=== PATIENT | female | born 1995 | race Hispanic/Latino ===

== ENCOUNTER 2016-07-06 05:01 | Emergency (ER) | payer OTHER ==
[2016-07-06] MEDS ORDERED: KETOROLAC 30 MG/ML VIAL (J1885) As Ordered ONE (05:42)
[2016-07-06] MEDS ORDERED: HYDROmorphone HCL 1 MG/ML SYRINGE (J1170) As Ordered ONE (05:42)
[2016-07-06 05:57] LABS: MICROSCOPIC INDICATED? MAN YES (NO)
[2016-07-06 06:02] LABS: BASO # 0.5 K/mm3 (0.0-0.2); BASO % 2.1 % (0.0-1.0); EOS # 0.2 K/mm3 (0.0-0.50); EOS % 0.9 % (0.0-3.0); LARGE UNSTAINED CELL # 0.2 K/mm3 (0.0-0.4); LARGE UNSTAINED CELL % 0.8 % (0.0-4.0); LYMPH # 3.7 K/mm3 (1.5-6.5); LYMPH % 16.5 % (24.0-44.0); MEAN CORPUSCULAR HEMOGLOBIN 28.8 pg (27.0-33.0); MEAN CORPUSCULAR HGB CONC 33.7 g/dl (32.0-36.5); MEAN CORPUSCULAR VOLUME 85.4 fl (80.0-96.0); MONO # 0.7 K/mm3 (0.0-0.8); MONO % 3.2 % (0.0-5.0); NEUTROPHILS # 16.6 K/mm3 (1.8-7.7); NEUTROPHILS % 76.5 % (36.0-66.0); PLATELET COUNT, AUTOMATED 352 k/mm3 (150-450); RED CELL DISTRIBUTION WIDTH 13.2 % (11.5-14.5); WHITE BLOOD COUNT 21.7 K/mm3 (4.0-10.0)
[2016-07-06 06:06] LABS: CONTROL LINE HCG INT CTR LINE PRESENT
[2016-07-06 06:09] LABS: ANION GAP 10 MEQ/L (8-16); BLOOD UREA NITROGEN 14 MG/DL (7-18); CARBON DIOXIDE LEVEL 26 MEQ/L (21-32); CHLORIDE LEVEL 106 MEQ/L (98-107); CREATININE FOR GFR 0.73 MG/DL (0.55-1.02); GLOMERULAR FILTRATION RATE > 60.0 (>60); GLUCOSE, FASTING 102 MG/DL (70-105); POTASSIUM SERUM 3.6 MEQ/L (3.5-5.1); SODIUM LEVEL 142 MEQ/L (136-145)
[2016-07-06 06:12] LABS: RBC, URINE TNTC /hpf (0-3); SQUAMOUS EPITHELIAL CELL URINE NONE SEEN /hpf (SMALL AMT)
[2016-07-06 06:13] LABS: BACTERIA, URINE NONE SEEN; HYALINE CAST, URINE NONE SEEN /lpf (0-1); MICROSCOPIC EXAM UNSPUN
--- NOTE | 2016-07-06 06:40 | REPUSA ---
CLINICAL HISTORY: Abdominal pain. TECHNIQUE: Multiple axial, sagittal and coronal CT images were obtained through the abdomen and pelvi s without administration of oral or IV contrast material. COMMENTS: The liver is of uniform attenuation without mass or defect. There is no intra or extrahepatic biliary ductal dilatation. The spleen is normal. The gallbladder is within normal limits. The pancreas is of normal contour and attenuation characteristics. There is no evidence of adrenal mass. The kidneys are normal in size, shape and configuration. No renal or ureteral calculi are identified. There is no hydroureter or hydronephrosis. There is no evidence for appendicitis. There is no bowel wall thickening. No evidence for small or la rge bowel obstruction. There is no evidence of abdominal ascites or lymphadenopathy. There is no evidence of intrinsic or extrinsic bladder mass. There is no pelvic ascites or lymphadeno michael. Moderate fecal stasis suggestive of constipation. Moderate fecal stasis in the distal small bowels. Images of the lung bases show no evidence of pleural or parenchymal mass. There are no pleural effusi ons. Mild diffuse thickening of the one of the small bowels. The bony structures are free of lytic or blastic lesions. IMPRESSION: Constipation. Thank you for your kind referral of this patient.
[2016-07-06] MEDS ORDERED: PHENAZOPYRIDINE 100 MG TAB As Ordered ONE (07:01)
[2016-07-06] MEDS ORDERED: BACTRIM 160MG/800MG DS TAB As Ordered ONE (07:02)
--- NOTE | 2016-07-06 07:09 | EDDOCDS ---
Physician Documentation [facility] Name: Andreina Angulo Age: 21 yrs Sex: Female : 1995 Arrival Date: 07/06/2016 Time: 05:01 Bed 7 Private MD: Disposition: 07/06/16 06:50 Discharged to Home/Self Care. Impression: Cystitis, unspecified with hematuria. - Condition is Stable. - Prescriptions for Pyridium 200 mg Oral Tablet - take 1 tablet by ORAL route every 8 hours for 3 days; 9 tablet. Bactrim DS 800- 160 mg Oral Tablet - take 1 tablet by ORAL route every 12 hours for 7 days; 14 tablet. - Medication Reconciliation, Local Pharmacy Hours form. - Follow up: Cuate Kumari [facility]; When: 1 - 2 days; Reason: Recheck today's complaints. - Problem is new. - Symptoms have improved. Historical: - Allergies: No known drug Allergies; - Home Meds: 1. none - PMHx: UTIin May; - PSHx: left knee; Tonsillectomy; Adenoidectomy; - Social history: Smoking status: Patient states was never smoker of tobacco. No barriers to communication noted, The patient speaks fluent Ukrainian. - Family history: Not pertinent. - : The pt / caregiver states he / she is not on anticoagulants. Home medication list is obtained from the patient. - Exposure Risk Screening:: None identified. NEWS REEL CAMERAMAN: 07/06 05:08 LMP 06/27/2016 [facility] [place] Vital Signs: 05:08 BP 120 / 77; Pulse 120; Resp 20; Temp 97.3; Pulse Ox 97% ; Weight 65.77 kg / 145 lbs; mlc Height 5 ft. 3 in. (160.02 cm); Pain 8/10; 06:18 BP 100 / 68 LA Supine (auto/); Pulse 88; Resp 18 S; Pulse Ox 99% on R/A; af2 05:08 Body Mass Index 25.69 (65.77 kg, 160.02 cm) [facility] [place] MDM: 05:32 IV Saline Lock ordered. cs11 05:32 NS 0.9% 2000 ml IV at bolus once ordered. cs11 05:32 ketorolac 30 mg IVP once ordered. cs11 05:33 Dilaudid - HYDROmorphone 0.5 mg IVP once ordered. cs11 05:33 CT ABD & PELVIS: No Contrast Ordered. EDMS 05:34 CBC with Diff Ordered. EDMS 05:34 MED Profile Ordered. EDMS 05:34 HCG,Serum Qualitative Ordered. EDMS 05:34 Urine Culture Ordered. EDMS 05:48 URINALYSIS MANUAL Ordered. EDMS 05:49 [facility] Payment Agreement was scanned into THE [employer] App and attached to record. pm4 05:50 Financial registration complete. pm4 06:08 CBC with Diff Reviewed. cs11 06:11 MICROSCOPIC, URINE Ordered. EDMS 06:35 URINALYSIS MANUAL Reviewed. cs11 06:35 MICROSCOPIC, URINE Reviewed. cs11 06:35 MED Profile Reviewed. cs11 06:35 HCG,Serum Qualitative Reviewed. cs11 06:48 Phenazopyridine 200 mg PO once ordered. cs11 06:49 Trimethoprim-Sulfamethoxazole 160 mg-800 mg (DS) 1 tabs PO once ordered. cs11 Administered Medications: 05:51 Drug: NS 0.9% 2000 ml [sodium chloride 0.9 % intravenous solution] Route: IV; Rate: mlc bolus; Site: right antecubital; 07:07 Follow up: IV Status: Infusion discontinued; IV Intake: 700ml kr3 05:51 Drug: ketorolac 30 mg [ketorolac 30 mg/mL (1 mL) injection solution (1 mL)] Route: IVP; [facility] [place] Site: right antecubital; 06:57 Follow up: Response: Pain is decreased af2 05:51 Drug: Dilaudid - HYDROmorphone 0.5 mg [hydromorphone 1 mg/mL injection syringe (0.5 mlc mL)] Route: IVP; Site: right antecubital; 06:57 Follow up: Response: Pain is decreased af2 07:07 Drug: Phenazopyridine 200 mg [phenazopyridine 100 mg tablet (2 tabs)] Route: PO; kr3 07:07 Drug: Trimethoprim-Sulfamethoxazole 1 tabs [sulfamethoxazole 800 mg-trimethoprim 160 mg kr3 tablet (1 tabs)] Route: PO; Signatures: Dispatcher MedHost EDMS Christy Rosen RN RN kr3 Fredo Lombardo, DO cs11 Cadence Garg RN RN [facility] [place] Gume Murcia, Reg Reg pm4 Sue Rodriguez RN af2 The chart was reviewed and I authenticate all verbal orders and agree with the evaluation and treatment provided.Corrections: (The following items were deleted from the chart) 05:48 05:34 URINALYSIS+LAB ordered. EDMS EDMS 06:28 06:26 MICROSCOPIC, URINE ordered. EDMS EDMS Attachments: 05:49 [facility] Payment Agreement pm4 MTDD
--- NOTE | 2016-07-06 07:10 | EDDOCDS ---
Nurse's Notes [facility] Name: Andreina Angulo Age: 21 yrs Sex: Female : 1995 Arrival Date: 07/06/2016 Time: 05:01 Bed 7 Private MD: Diagnosis: Cystitis, unspecified with hematuria Presentation: 07/06 05:05 Presenting complaint: Patient states: pt reports blood, possibly vaginal or urine mlc (unknown). pt also c/o lower back pain. sudden onset 2 hours ago. pt c/o nausea. Risk factors: The patient reports no loss of conciousness prior to arrival. This patient has not had a hysterectomy. This patient has not begun menopause. Adult Sepsis Screening: The patient does not have new or worsening altered mentation. Patient's respiratory rate is less than 22. Systolic blood pressure is greater than 100. Patient has a qSOFA score of 0- Negative Sepsis Screen. Suicide/Homicide risk assessment- the patient denies having any suicidal and/or homicidal ideations and does not present with any other emotional, behavioral or mental health complaints. Status: The patient is a dependent. Transition of care: patient was not received from another setting of care. 05:05 Acuity: ANDREINA Level 3 mlc 05:05 Method Of Arrival: Walkin/Carried/Asstd mlc Triage Assessment: 05:08 General: Appears uncomfortable, Behavior is cooperative, crying. Pain: Location: low mlc back area, suprapubic area, right lower quadrant and left lower quadrant Pain currently is 8 out of 10 on a pain scale. Pt Declines HIV testing. The patient is triaged at the bedside. See Assessment in Nurses Notes section of ED record. Neurological: Level of Consciousness is awake, alert, obeys commands, Oriented to person, place, time. Respiratory: Airway is patent Respiratory effort is even, unlabored, Respiratory pattern is regular. : Reports vaginal bleeding that is with clots moderate flow. Derm: Skin is pink, warm & dry. 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 none - PMHx: UTIin May; - PSHx: left knee; Tonsillectomy; Adenoidectomy; - Social history: Smoking status: Patient states was never smoker of tobacco. No barriers to communication noted, The patient speaks fluent Wolof. - Family history: Not pertinent. - : The pt / caregiver states he / she is not on anticoagulants. Home medication list is obtained from the patient. - Exposure Risk Screening:: None identified. Screenin:11 Screening information is obtained from the patient. Fall risk: No risks identified. [facility] [place] Assistance ADL's: requires no assistance with activities of daily living. Abuse/DV Screen: The patient / caregiver reports he/she is: not in a situation that causes fear, pain or injury. Nutritional screening: No deficits noted. Advance Directives: Currently, there is no health care proxy. There is no Power of Mail Examiner. home support is adequate. Assessment: 05:17 : Urine is blood tinged. [facility] [place] 05:51 General: pt medicated per order. [facility] [place] 05:55 General: Appears in no apparent distress, comfortable, Behavior is appropriate for age, af2 cooperative. Neurological: Level of Consciousness is awake, alert, obeys commands. Respiratory: Airway is patent Respiratory effort is even, unlabored. : Urine is blood tinged, Reports urinary frequency. 06:33 General: Appears in no apparent distress, comfortable, Behavior is appropriate for age, af2 cooperative. General: pt returned from CT, tolerated procedure well.. Neurological: Level of Consciousness is awake, alert, obeys commands. Respiratory: Airway is patent Respiratory effort is even, unlabored. Derm: Skin is normal. 07:08 Reassessment: Patient appears in no apparent distress at this time. Patient denies pain kr3 at this time. Patient states feeling better. Respiratory: Respiratory effort is even, unlabored. Derm: Skin is normal. Vital Signs: 05:08 BP 120 / 77; Pulse 120; Resp 20; Temp 97.3; Pulse Ox 97% ; Weight 65.77 kg; Height 5 [facility] [place] ft. 3 in. (160.02 cm); Pain 8/10; 06:18 BP 100 / 68 LA Supine (auto/); Pulse 88; Resp 18 S; Pulse Ox 99% on R/A; af2 05:08 Body Mass Index 25.69 (65.77 kg, 160.02 cm) [facility] [place] Vitals: 05:08 Log In Time: July 06, 2016 at 05:03. [facility] [place] ED Course: 05:03 Patient visited by Cruz, Yuliana, Reg. hs2 05:03 Patient moved to Waiting hs2 05:07 Triage Initiated mlc 05:11 Patient visited by Cadence Garg RN. mlc 05:11 Patient moved to 7 mlc 05:14 Fredo Lombardo DO is Attending Physician. cs11 05:14 Patient visited by Fredo Lombardo DO. cs11 05:41 Urine Culture Sent. mlc 05:41 HCG,Serum Qualitative Sent. mlc 05:41 MED Profile Sent. mlc 05:41 CBC with Diff Sent. mlc 05:48 Patient name changed from Andreina\S\L\S\Angulo\S\ to Andreina\S\Beverly\S\Angulo. EDMS 05:49 [facility] [place] Payment Agreement was scanned into [employer] and attached to record. pm4 05:51 Patient visited by Cadence Garg RN. mlc 05:51 URINALYSIS MANUAL Sent. mlc 05:56 Patient visited by Sue Rodriguez RN. af2 06:19 Patient visited by Sue Rodriguez RN. af2 06:35 Patient visited by Sue Rodriguez RN. af2 06:50 Cuate Kumari [facility] is Referral Physician. cs11 06:59 Christy Rosen,CHAYITO is Primary Nurse. kr3 07:07 Discontinued lock intact, bleeding controlled, pressure dressing applied, No kr3 redness/swelling at site. No procedures done that require assistance. 07:08 The patient / caregiver is instructed regarding the plan of care and ED course. kr3 Accompanied by Family Member, Patient has correct armband on for positive identification. Administered Medications: 05:51 Drug: NS 0.9% 2000 ml [sodium chloride 0.9 % intravenous solution] Route: IV; Rate: mlc bolus; Site: right antecubital; 07:07 Follow up: IV Status: Infusion discontinued; IV Intake: 700ml kr3 05:51 Drug: ketorolac 30 mg [ketorolac 30 mg/mL (1 mL) injection solution (1 mL)] Route: IVP; mlc Site: right antecubital; 06:57 Follow up: Response: Pain is decreased af2 05:51 Drug: Dilaudid - HYDROmorphone 0.5 mg [hydromorphone 1 mg/mL injection syringe (0.5 mlc mL)] Route: IVP; Site: right antecubital; 06:57 Follow up: Response: Pain is decreased af2 07:07 Drug: Phenazopyridine 200 mg [phenazopyridine 100 mg tablet (2 tabs)] Route: PO; kr3 07:07 Drug: Trimethoprim-Sulfamethoxazole 1 tabs [sulfamethoxazole 800 mg-trimethoprim 160 mg kr3 tablet (1 tabs)] Route: PO; Intake: 07:07 IV: 700.00ml; Total: 700.00ml. kr3 Order Results: Lab Order: CBC with Diff; SPEC'M 07/06/16 05:33 Test: WHITE BLOOD COUNT; Value: 21.7; Range: 4.0-10.0; Abnormal: Above high normal; Units: K/mm3; Status: F Test: RED BLOOD COUNT; Value: 5.05; Range: 4.00-5.40; Units: M/mm3; Status: F Test: HEMOGLOBIN; Value: 14.6; Range: 12.0-16.0; Units: g/dl; Status: F Test: HEMATOCRIT; Value: 43.2; Range: 36.0-47.0; Units: %; Status: F Test: MEAN CORPUSCULAR VOLUME; Value: 85.4; Range: 80.0-96.0; Units: fl; Status: F Test: MEAN CORPUSCULAR HEMOGLOBIN; Value: 28.8; Range: 27.0-33.0; Units: pg; Status: F Test: MEAN CORPUSCULAR HGB CONC; Value: 33.7; Range: 32.0-36.5; Units: g/dl; Status: F Test: RED CELL DISTRIBUTION WIDTH; Value: 13.2; Range: 11.5-14.5; Units: %; Status: F Test: PLATELET COUNT, AUTOMATED; Value: 352; Range: 150-450; Units: k/mm3; Status: F Test: NEUTROPHILS %; Value: 76.5; Range: 36.0-66.0; Abnormal: Above high normal; Units: %; Status: F Test: LYMPH %; Value: 16.5; Range: 24.0-44.0; Abnormal: Below low normal; Units: %; Status: F Test: MONO %; Value: 3.2; Range: 0.0-5.0; Units: %; Status: F Test: EOS %; Value: 0.9; Range: 0.0-3.0; Units: %; Status: F Test: BASO %; Value: 2.1; Range: 0.0-1.0; Abnormal: Above high normal; Units: %; Status: F Test: LARGE UNSTAINED CELL %; Value: 0.8; Range: 0.0-4.0; Units: %; Status: F Test: NEUTROPHILS #; Value: 16.6; Range: 1.8-7.7; Abnormal: Above high normal; Units: K/mm3; Status: F Test: LYMPH #; Value: 3.7; Range: 1.5-6.5; Units: K/mm3; Status: F Test: MONO #; Value: 0.7; Range: 0.0-0.8; Units: K/mm3; Status: F Test: EOS #; Value: 0.2; Range: 0.0-0.50; Units: K/mm3; Status: F Test: BASO #; Value: 0.5; Range: 0.0-0.2; Abnormal: Above high normal; Units: K/mm3; Status: F Test: LARGE UNSTAINED CELL #; Value: 0.2; Range: 0.0-0.4; Units: K/mm3; Status: F Lab Order: MED Profile; SPEC'M 07/06/16 05:33 Test: GLUCOSE, FASTING; Value: 102; Range: 70-105; Units: MG/DL; Status: F Test: BLOOD UREA NITROGEN; Value: 14; Range: 7-18; Units: MG/DL; Status: F Test: CREATININE FOR GFR; Value: 0.73; Range: 0.55-1.02; Units: MG/DL; Status: F Test: SODIUM LEVEL; Range: 136-145; Units: MEQ/L; Status: I Test: POTASSIUM SERUM; Range: 3.5-5.1; Units: MEQ/L; Status: I Test: CHLORIDE LEVEL; Range: 98-107; Units: MEQ/L; Status: I Test: CARBON DIOXIDE LEVEL; Range: 21-32; Units: MEQ/L; Status: I Test: ANION GAP; Range: 8-16; Units: MEQ/L; Status: I Test: CALCIUM LEVEL; Range: 8.5-10.1; Units: MG/DL; Status: I Test: GLOMERULAR FILTRATION RATE; Value: > 60.0; Range: >60; Status: F Test: SODIUM LEVEL; Value: 142; Range: 136-145; Units: MEQ/L; Status: F Test: POTASSIUM SERUM; Value: 3.6; Range: 3.5-5.1; Units: MEQ/L; Status: F Test: CHLORIDE LEVEL; Value: 106; Range: 98-107; Units: MEQ/L; Status: F Test: CARBON DIOXIDE LEVEL; Value: 26; Range: 21-32; Units: MEQ/L; Status: F Test: ANION GAP; Value: 10; Range: 8-16; Units: MEQ/L; Status: F Test: CALCIUM LEVEL; Value: 9.0; Range: 8.5-10.1; Units: MG/DL; Status: F Test Note: ; Units are mL/min/1.73 m2 Chronic Kidney Disease Staging per NKF: Stage I & II GFR >=60 Normal to Mildly Decreased Stage III GFR 30-59 Moderately Decreased Stage IV GFR 15-29 Severely Decreased Stage V GFR <15 Very Little GFR Left ESRD GFR <15 on SUPERVISOR POWDERED SUGAR Lab Order: HCG,Serum Qualitative; SPEC'M 07/06/16 05:33 Test: HCG, SERUM QUALITATIVE; Value: NEGATIVE; Range: NEGATIVE; Status: F Lab Order: URINALYSIS MANUAL; SPEC'M 07/06/16 05:33 Test: APPEARANCE, URINE MANUAL; Value: TURBID; Range: CLEAR; Abnormal: Above high normal; Status: F Test: COLOR, URINE MANUAL; Value: RED; Range: YELLOW; Abnormal: Above high normal; Status: F Test: PH,URINE MAN; Value: 6.0; Range: 5.0 - 9.0; Units: UNITS; Status: F Test: SPECIFIC GRAVITY,URINE MANUAL; Value: 1.020; Range: 1.002-1.035; Status: F Test: PROTEIN, URINE MANUAL; Value: 3+; Range: NEGATIVE; Abnormal: Above high normal; Units: mg/dL; Status: F Test: GLUCOSE, URINE (UA) MANUAL; Value: NEGATIVE; Range: NEGATIVE; Units: mg/dL; Status: F Test: KETONE, URINE MANUAL; Value: NEGATIVE; Range: NEGATIVE; Units: mg/dL; Status: F Test: UROBILINOGEN, URINE MANUAL; Value: NORMAL; Range: NORMAL; Units: mg/dl; Status: F Test: BILIRUBIN, URINE MANUAL; Value: NEGATIVE; Range: NEGATIVE; Status: F Test: NITRITE, URINE MANUAL; Value: NEGATIVE; Range: NEGATIVE; Status: F Test: LEUKOCYTE ESTERASE, URINE MAN; Value: POSITIVE; Range: NEGATIVE; Abnormal: Above high normal; Status: F Test: BLOOD URINE MANUAL; Value: POSITIVE; Range: NEGATIVE; Abnormal: Above high normal; Status: F Lab Order: MICROSCOPIC, URINE; SPEC'M 07/06/16 05:33 Test: WBC, URINE; Value: 1-3; Range: 0-3; Units: /hpf; Status: F Test: RBC, URINE; Value: TNTC; Range: 0-3; Abnormal: Above high normal; Units: /hpf; Status: F Test: SQUAMOUS EPITHELIAL CELL URINE; Value: NONE SEEN; Range: SMALL AMT; Units: /hpf; Status: F Test: BACTERIA, URINE; Value: NONE SEEN; Range: NONE; Status: F Test: HYALINE CAST, URINE; Value: NONE SEEN; Range: 0-1; Units: /lpf; Status: F Test: MICROSCOPIC EXAM; Value: UNSPUN; Status: F Outcome: 06:50 Discharge ordered by Provider. 11 07:08 Discharge Assessment: patient administered narcotics - yes. Pt provided with safe kr3 discharge. The following High Risk Discharge criteria are identified: None. Discharged to home ambulatory, with family. Condition: stable. Discharge instructions given to patient, Instructed on discharge instructions, follow up and referral plans. medication usage, Demonstrated understanding of instructions, medications, Pt was receptive of discharge instructions/ teaching. Prescriptions given X 2. CT Study completed. Property sent home with patient. 07:09 Patient left the ED. kr3 Signatures: Dispatcher MedHost EDMS Christy RosenRN RN clara3 Fredo Lombardo DO DO cs11 Cadence Garg RN RN mlc Fulton, Amber, RN RN af2 Yuliana Cruz, Reg Reg hs2 Gume Murcia, Reg Reg pm4 Corrections: (The following items were deleted from the chart) 05:48 05:41 URINALYSIS+LAB sent. [facility] [place] COREYHI MTDD
--- NOTE | 2016-07-08 08:10 | EDDOCDS ---
Physician Documentation [facility] Name: Andreina Angulo Age: 21 yrs Sex: Female : 1995 Arrival Date: 07/06/2016 Time: 05:01 Bed 7 Private MD: Disposition: 07/06/16 06:50 Discharged to Home/Self Care. Impression: Cystitis, unspecified with hematuria. - Condition is Stable. - Prescriptions for Pyridium 200 mg Oral Tablet - take 1 tablet by ORAL route every 8 hours for 3 days; 9 tablet. Bactrim DS 800- 160 mg Oral Tablet - take 1 tablet by ORAL route every 12 hours for 7 days; 14 tablet. - Medication Reconciliation, Local Pharmacy Hours form. - Follow up: Cuate Kumari [facility]; When: 1 - 2 days; Reason: Recheck today's complaints. - Problem is new. - Symptoms have improved. Historical: - Allergies: No known drug Allergies; - Home Meds: 1. none - PMHx: UTIin May; - PSHx: left knee; Tonsillectomy; Adenoidectomy; - Social history: Smoking status: Patient states was never smoker of tobacco. No barriers to communication noted, The patient speaks fluent Maltese. - Family history: Not pertinent. - : The pt / caregiver states he / she is not on anticoagulants. Home medication list is obtained from the patient. - Exposure Risk Screening:: None identified. SAW FEEDER: 07/06 05:08 [place]/2016 [facility] [place]ital Signs: 05:08 BP 120 / 77; Pulse 120; Resp 20; Temp 97.3; Pulse Ox 97% ; Weight 65.77 kg / 145 lbs; mlc Height 5 ft. 3 in. (160.02 cm); Pain 8/10; 06:18 BP 100 / 68 LA Supine (auto/); Pulse 88; Resp 18 S; Pulse Ox 99% on R/A; af2 05:08 Body Mass Index 25.69 (65.77 kg, 160.02 cm) [facility] [place] MDM: 05:32 IV Saline Lock ordered. cs11 05:32 NS 0.9% 2000 ml IV at bolus once ordered. cs11 05:32 ketorolac 30 mg IVP once ordered. cs11 05:33 Dilaudid - HYDROmorphone 0.5 mg IVP once ordered. cs11 05:33 CT ABD & PELVIS: No Contrast Ordered. EDMS 05:34 CBC with Diff Ordered. EDMS 05:34 MED Profile Ordered. EDMS 05:34 HCG,Serum Qualitative Ordered. EDMS 05:34 Urine Culture Ordered. EDMS 05:48 URINALYSIS MANUAL Ordered. EDMS 05:49 [facility] Payment Agreement was scanned into youcalc and attached to record. pm4 05:50 Financial registration complete. pm4 06:08 CBC with Diff Reviewed. cs11 06:11 MICROSCOPIC, URINE Ordered. EDMS 06:35 URINALYSIS MANUAL Reviewed. cs11 06:35 MICROSCOPIC, URINE Reviewed. cs11 06:35 MED Profile Reviewed. cs11 06:35 HCG,Serum Qualitative Reviewed. cs11 06:48 Phenazopyridine 200 mg PO once ordered. cs11 06:49 Trimethoprim-Sulfamethoxazole 160 mg-800 mg (DS) 1 tabs PO once ordered. cs11 13:12 Radiology Report was scanned into youcalc and attached to record. gb 13:38 T-Sheet-- Draft Copy was scanned into youcalc and attached to record. gb Administered Medications: 05:51 Drug: NS 0.9% 2000 ml [sodium chloride 0.9 % intravenous solution] Route: IV; Rate: mlc bolus; Site: right antecubital; 07:07 Follow up: IV Status: Infusion discontinued; IV Intake: 700ml kr3 05:51 Drug: ketorolac 30 mg [ketorolac 30 mg/mL (1 mL) injection solution (1 mL)] Route: IVP; mlc Site: right antecubital; 06:57 Follow up: Response: Pain is decreased af2 05:51 Drug: Dilaudid - HYDROmorphone 0.5 mg [hydromorphone 1 mg/mL injection syringe (0.5 mlc mL)] Route: IVP; Site: right antecubital; 06:57 Follow up: Response: Pain is decreased af2 07:07 Drug: Phenazopyridine 200 mg [phenazopyridine 100 mg tablet (2 tabs)] Route: PO; kr3 07:07 Drug: Trimethoprim-Sulfamethoxazole 1 tabs [sulfamethoxazole 800 mg-trimethoprim 160 mg kr3 tablet (1 tabs)] Route: PO; Signatures: Dispatcher MedHost EDMS Zunilda Billingsley, Reg Reg gb Silas,Christy,RN RN kr3 Fredo Lombardo, DO DO cs11 Cadence GargRN RN [facility] [place] Gume Murcia, Reg Reg pm4 Sue Rodriguez RN af2 The chart was reviewed and I authenticate all verbal orders and agree with the evaluation and treatment provided.Corrections: (The following items were deleted from the chart) 05:48 05:34 URINALYSIS+LAB ordered. EDMS EDMS 06:28 06:26 MICROSCOPIC, URINE ordered. EDMS EDMS Attachments: 05:49 [facility] [place] Payment Agreement pm4 13:38 T-Sheet-- Draft Copy gb Chart Complete MTDD
--- NOTE | 2016-07-08 08:10 | EDDOCDS ---
Physician Documentation [facility] Name: Andreina Angulo Age: 21 yrs Sex: Female : 1995 Arrival Date: 07/06/2016 Time: 05:01 Bed 7 Private MD: Disposition: 07/06/16 06:50 Discharged to Home/Self Care. Impression: Cystitis, unspecified with hematuria. - Condition is Stable. - Prescriptions for Pyridium 200 mg Oral Tablet - take 1 tablet by ORAL route every 8 hours for 3 days; 9 tablet. Bactrim DS 800- 160 mg Oral Tablet - take 1 tablet by ORAL route every 12 hours for 7 days; 14 tablet. - Medication Reconciliation, Local Pharmacy Hours form. - Follow up: Cuate Kumair [facility]; When: 1 - 2 days; Reason: Recheck today's complaints. - Problem is new. - Symptoms have improved. Historical: - Allergies: No known drug Allergies; - Home Meds: 1. none - PMHx: UTIin May; - PSHx: left knee; Tonsillectomy; Adenoidectomy; - Social history: Smoking status: Patient states was never smoker of tobacco. No barriers to communication noted, The patient speaks fluent Croatian. - Family history: Not pertinent. - : The pt / caregiver states he / she is not on anticoagulants. Home medication list is obtained from the patient. - Exposure Risk Screening:: None identified. 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 3 in. (160.02 cm); Pain 8/10; 06:18 BP 100 / 68 LA Supine (auto/); Pulse 88; Resp 18 S; Pulse Ox 99% on R/A; af2 05:08 Body Mass Index 25.69 (65.77 kg, 160.02 cm) [facility] [place] MDM: 05:32 IV Saline Lock ordered. cs11 05:32 NS 0.9% 2000 ml IV at bolus once ordered. cs11 05:32 ketorolac 30 mg IVP once ordered. cs11 05:33 Dilaudid - HYDROmorphone 0.5 mg IVP once ordered. cs11 05:33 CT ABD & PELVIS: No Contrast Ordered. EDMS 05:34 CBC with Diff Ordered. EDMS 05:34 MED Profile Ordered. EDMS 05:34 HCG,Serum Qualitative Ordered. EDMS 05:34 Urine Culture Ordered. EDMS 05:48 URINALYSIS MANUAL Ordered. EDMS 05:49 [facility] Payment Agreement was scanned into [employer] and attached to record. pm4 05:50 Financial registration complete. pm4 06:08 CBC with Diff Reviewed. cs11 06:11 MICROSCOPIC, URINE Ordered. EDMS 06:35 URINALYSIS MANUAL Reviewed. cs11 06:35 MICROSCOPIC, URINE Reviewed. cs11 06:35 MED Profile Reviewed. cs11 06:35 HCG,Serum Qualitative Reviewed. cs11 06:48 Phenazopyridine 200 mg PO once ordered. cs11 06:49 Trimethoprim-Sulfamethoxazole 160 mg-800 mg (DS) 1 tabs PO once ordered. cs11 13:12 Radiology Report was scanned into [employer] and attached to record. gb 13:38 T-Sheet-- Draft Copy was scanned into [employer] and attached to record. gb Administered Medications: 05:51 Drug: NS 0.9% 2000 ml [sodium chloride 0.9 % intravenous solution] Route: IV; Rate: mlc bolus; Site: right antecubital; 07:07 Follow up: IV Status: Infusion discontinued; IV Intake: 700ml kr3 05:51 Drug: ketorolac 30 mg [ketorolac 30 mg/mL (1 mL) injection solution (1 mL)] Route: IVP; mlc Site: right antecubital; 06:57 Follow up: Response: Pain is decreased af2 05:51 Drug: Dilaudid - HYDROmorphone 0.5 mg [hydromorphone 1 mg/mL injection syringe (0.5 mlc mL)] Route: IVP; Site: right antecubital; 06:57 Follow up: Response: Pain is decreased af2 07:07 Drug: Phenazopyridine 200 mg [phenazopyridine 100 mg tablet (2 tabs)] Route: PO; kr3 07:07 Drug: Trimethoprim-Sulfamethoxazole 1 tabs [sulfamethoxazole 800 mg-trimethoprim 160 mg kr3 tablet (1 tabs)] Route: PO; Signatures: Dispatcher [employer] EDMS Zunilda Billingsley, Reg Reg gb Silas,Christy,RN RN kr3 Fredo Lombardo, DO DO cs11 Cadence GargRN RN [facility] [place] Gume Murcia, Reg Reg pm4 Sue Rodriguez RN af2 The chart was reviewed and I authenticate all verbal orders and agree with the evaluation and treatment provided.Corrections: (The following items were deleted from the chart) 05:48 05:34 URINALYSIS+LAB ordered. EDMS EDMS 06:28 06:26 MICROSCOPIC, URINE ordered. EDMS EDMS Attachments: 05:49 [facility] [place] Payment Agreement pm4 13:38 T-Sheet-- Draft Copy gb Chart Complete MTDD
--- NOTE | 2016-07-08 08:10 | EDDOCDS ---
Nurse's Notes [facility] Name: Andreina Angulo Age: 21 yrs Sex: Female : 1995 Arrival Date: 07/06/2016 Time: 05:01 Bed 7 Private MD: Diagnosis: Cystitis, unspecified with hematuria Presentation: 07/06 05:05 Presenting complaint: Patient states: pt reports blood, possibly vaginal or urine mlc (unknown). pt also c/o lower back pain. sudden onset 2 hours ago. pt c/o nausea. Risk factors: The patient reports no loss of conciousness prior to arrival. This patient has not had a hysterectomy. This patient has not begun menopause. Adult Sepsis Screening: The patient does not have new or worsening altered mentation. Patient's respiratory rate is less than 22. Systolic blood pressure is greater than 100. Patient has a qSOFA score of 0- Negative Sepsis Screen. Suicide/Homicide risk assessment- the patient denies having any suicidal and/or homicidal ideations and does not present with any other emotional, behavioral or mental health complaints. Status: The patient is a dependent. Transition of care: patient was not received from another setting of care. 05:05 Acuity: ANDREINA Level 3 mlc 05:05 Method Of Arrival: Walkin/Carried/Asstd mlc Triage Assessment: 05:08 General: Appears uncomfortable, Behavior is cooperative, crying. Pain: Location: low mlc back area, suprapubic area, right lower quadrant and left lower quadrant Pain currently is 8 out of 10 on a pain scale. Pt Declines HIV testing. The patient is triaged at the bedside. See Assessment in Nurses Notes section of ED record. Neurological: Level of Consciousness is awake, alert, obeys commands, Oriented to person, place, time. Respiratory: Airway is patent Respiratory effort is even, unlabored, Respiratory pattern is regular. : Reports vaginal bleeding that is with clots moderate flow. Derm: Skin is pink, warm & dry. 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 none - PMHx: UTIin May; - PSHx: left knee; Tonsillectomy; Adenoidectomy; - Social history: Smoking status: Patient states was never smoker of tobacco. No barriers to communication noted, The patient speaks fluent Polish. - Family history: Not pertinent. - : The pt / caregiver states he / she is not on anticoagulants. Home medication list is obtained from the patient. - Exposure Risk Screening:: None identified. Screenin:11 Screening information is obtained from the patient. Fall risk: No risks identified. [facility] Assistance ADL's: requires no assistance with activities of daily living. Abuse/DV Screen: The patient / caregiver reports he/she is: not in a situation that causes fear, pain or injury. Nutritional screening: No deficits noted. Advance Directives: Currently, there is no health care proxy. There is no Power of Manager Community. home support is adequate. Assessment: 05:17 : Urine is blood tinged. [facility] 05:51 General: pt medicated per order. [facility] 05:55 General: Appears in no apparent distress, comfortable, Behavior is appropriate for age, af2 cooperative. Neurological: Level of Consciousness is awake, alert, obeys commands. Respiratory: Airway is patent Respiratory effort is even, unlabored. : Urine is blood tinged, Reports urinary frequency. 06:33 General: Appears in no apparent distress, comfortable, Behavior is appropriate for age, af2 cooperative. General: pt returned from CT, tolerated procedure well.. Neurological: Level of Consciousness is awake, alert, obeys commands. Respiratory: Airway is patent Respiratory effort is even, unlabored. Derm: Skin is normal. 07:08 Reassessment: Patient appears in no apparent distress at this time. Patient denies pain kr3 at this time. Patient states feeling better. Respiratory: Respiratory effort is even, unlabored. Derm: Skin is normal. Vital Signs: 05:08 BP 120 / 77; Pulse 120; Resp 20; Temp 97.3; Pulse Ox 97% ; Weight 65.77 kg; Height 5 [facility] ft. 3 in. (160.02 cm); Pain 8/10; 06:18 BP 100 / 68 LA Supine (auto/); Pulse 88; Resp 18 S; Pulse Ox 99% on R/A; af2 05:08 Body Mass Index 25.69 (65.77 kg, 160.02 cm) [facility] Vitals: 05:08 Log In Time: July 06, 2016 at 05:03. [facility] ED Course: 05:03 Patient visited by Cruz, Yuliana, Reg. hs2 05:03 Patient moved to Waiting hs2 05:07 Triage Initiated mlc 05:11 Patient visited by Cadence Garg RN. mlc 05:11 Patient moved to 7 mlc 05:14 Fredo Lombardo DO is Attending Physician. cs11 05:14 Patient visited by Fredo Lombardo DO. cs11 05:41 Urine Culture Sent. mlc 05:41 HCG,Serum Qualitative Sent. mlc 05:41 MED Profile Sent. mlc 05:41 CBC with Diff Sent. mlc 05:48 Patient name changed from Andreina\S\L\S\Angulo\S\ to Andreina\S\Beverly\S\Angulo. EDMS 05:49 [facility] [place] Payment Agreement was scanned into [employer] and attached to record. pm4 05:51 Patient visited by Cadence Garg RN. mlc 05:51 URINALYSIS MANUAL Sent. mlc 05:56 Patient visited by Sue Rodriguez RN. af2 06:19 Patient visited by uSe Rodriguez RN. af2 06:35 Patient visited by Sue Rodriguez RN. af2 06:50 Cuate Kumari [facility] is Referral Physician. cs11 06:59 Christy Rosen,CHAYITO is Primary Nurse. kr3 07:07 Discontinued lock intact, bleeding controlled, pressure dressing applied, No kr3 redness/swelling at site. No procedures done that require assistance. 07:08 The patient / caregiver is instructed regarding the plan of care and ED course. kr3 Accompanied by Family Member, Patient has correct armband on for positive identification. 07:15 CT ABD & PELVIS: No Contrast Returned. EDMS 13:12 Radiology Report was scanned into [employer] and attached to record. gb 13:38 T-Sheet-- Draft Copy was scanned into [employer] and attached to record. gb Administered Medications: 05:51 Drug: NS 0.9% 2000 ml [sodium chloride 0.9 % intravenous solution] Route: IV; Rate: mlc bolus; Site: right antecubital; 07:07 Follow up: IV Status: Infusion discontinued; IV Intake: 700ml kr3 05:51 Drug: ketorolac 30 mg [ketorolac 30 mg/mL (1 mL) injection solution (1 mL)] Route: IVP; mlc Site: right antecubital; 06:57 Follow up: Response: Pain is decreased af2 05:51 Drug: Dilaudid - HYDROmorphone 0.5 mg [hydromorphone 1 mg/mL injection syringe (0.5 mlc mL)] Route: IVP; Site: right antecubital; 06:57 Follow up: Response: Pain is decreased af2 07:07 Drug: Phenazopyridine 200 mg [phenazopyridine 100 mg tablet (2 tabs)] Route: PO; kr3 07:07 Drug: Trimethoprim-Sulfamethoxazole 1 tabs [sulfamethoxazole 800 mg-trimethoprim 160 mg kr3 tablet (1 tabs)] Route: PO; Intake: 07:07 IV: 700.00ml; Total: 700.00ml. kr3 Order Results: Lab Order: CBC with Diff; SPEC'M 07/06/16 05:33 Test: WHITE BLOOD COUNT; Value: 21.7; Range: 4.0-10.0; Abnormal: Above high normal; Units: K/mm3; Status: F Test: RED BLOOD COUNT; Value: 5.05; Range: 4.00-5.40; Units: M/mm3; Status: F Test: HEMOGLOBIN; Value: 14.6; Range: 12.0-16.0; Units: g/dl; Status: F Test: HEMATOCRIT; Value: 43.2; Range: 36.0-47.0; Units: %; Status: F Test: MEAN CORPUSCULAR VOLUME; Value: 85.4; Range: 80.0-96.0; Units: fl; Status: F Test: MEAN CORPUSCULAR HEMOGLOBIN; Value: 28.8; Range: 27.0-33.0; Units: pg; Status: F Test: MEAN CORPUSCULAR HGB CONC; Value: 33.7; Range: 32.0-36.5; Units: g/dl; Status: F Test: RED CELL DISTRIBUTION WIDTH; Value: 13.2; Range: 11.5-14.5; Units: %; Status: F Test: PLATELET COUNT, AUTOMATED; Value: 352; Range: 150-450; Units: k/mm3; Status: F Test: NEUTROPHILS %; Value: 76.5; Range: 36.0-66.0; Abnormal: Above high normal; Units: %; Status: F Test: LYMPH %; Value: 16.5; Range: 24.0-44.0; Abnormal: Below low normal; Units: %; Status: F Test: MONO %; Value: 3.2; Range: 0.0-5.0; Units: %; Status: F Test: EOS %; Value: 0.9; Range: 0.0-3.0; Units: %; Status: F Test: BASO %; Value: 2.1; Range: 0.0-1.0; Abnormal: Above high normal; Units: %; Status: F Test: LARGE UNSTAINED CELL %; Value: 0.8; Range: 0.0-4.0; Units: %; Status: F Test: NEUTROPHILS #; Value: 16.6; Range: 1.8-7.7; Abnormal: Above high normal; Units: K/mm3; Status: F Test: LYMPH #; Value: 3.7; Range: 1.5-6.5; Units: K/mm3; Status: F Test: MONO #; Value: 0.7; Range: 0.0-0.8; Units: K/mm3; Status: F Test: EOS #; Value: 0.2; Range: 0.0-0.50; Units: K/mm3; Status: F Test: BASO #; Value: 0.5; Range: 0.0-0.2; Abnormal: Above high normal; Units: K/mm3; Status: F Test: LARGE UNSTAINED CELL #; Value: 0.2; Range: 0.0-0.4; Units: K/mm3; Status: F Lab Order: [facility]; SPEC'M 07/06/16 05:33 Test: GLUCOSE, FASTING; Value: 102; Range: 70-105; Units: MG/DL; Status: F Test: BLOOD UREA NITROGEN; Value: 14; Range: 7-18; Units: MG/DL; Status: F Test: CREATININE FOR GFR; Value: 0.73; Range: 0.55-1.02; Units: MG/DL; Status: F Test: SODIUM LEVEL; Range: 136-145; Units: MEQ/L; Status: I Test: POTASSIUM SERUM; Range: 3.5-5.1; Units: MEQ/L; Status: I Test: CHLORIDE LEVEL; Range: 98-107; Units: MEQ/L; Status: I Test: CARBON DIOXIDE LEVEL; Range: 21-32; Units: MEQ/L; Status: I Test: ANION GAP; Range: 8-16; Units: MEQ/L; Status: I Test: CALCIUM LEVEL; Range: 8.5-10.1; Units: MG/DL; Status: I Test: GLOMERULAR FILTRATION RATE; Value: > 60.0; Range: >60; Status: F Test: SODIUM LEVEL; Value: 142; Range: 136-145; Units: MEQ/L; Status: F Test: POTASSIUM SERUM; Value: 3.6; Range: 3.5-5.1; Units: MEQ/L; Status: F Test: CHLORIDE LEVEL; Value: 106; Range: 98-107; Units: MEQ/L; Status: F Test: CARBON DIOXIDE LEVEL; Value: 26; Range: 21-32; Units: MEQ/L; Status: F Test: ANION GAP; Value: 10; Range: 8-16; Units: MEQ/L; Status: F Test: CALCIUM LEVEL; Value: 9.0; Range: 8.5-10.1; Units: MG/DL; Status: F Test Note: ; Units are mL/min/1.73 m2 Chronic Kidney Disease Staging per NKF: Stage I & II GFR >=60 Normal to Mildly Decreased Stage III GFR 30-59 Moderately Decreased Stage IV GFR 15-29 Severely Decreased Stage V GFR <15 Very Little GFR Left ESRD GFR <15 on CHIEF OF FIELD OPERATIONS Lab Order: HCG,Serum Qualitative; SPEC'M 07/06/16 05:33 Test: HCG, SERUM QUALITATIVE; Value: NEGATIVE; Range: NEGATIVE; Status: F Lab Order: Urine Culture; SPEC'M 07/06/16 05:33 Test: URINE CULTURE; Value: <EXTERNAL COMMENT eCWMed> FULL REPORT IN LAB NOTES (eCW and Medent).; Status: F Test: URINE CULTURE; Value: URINE CULTURE RESULT SPECIMEN APPEARS CONTAMINATED; Status: F Lab Order: URINALYSIS MANUAL; SPEC'M 07/06/16 05:33 Test: APPEARANCE, URINE MANUAL; Value: TURBID; Range: CLEAR; Abnormal: Above high normal; Status: F Test: COLOR, URINE MANUAL; Value: RED; Range: YELLOW; Abnormal: Above high normal; Status: F Test: PH,URINE MAN; Value: 6.0; Range: 5.0 - 9.0; Units: UNITS; Status: F Test: SPECIFIC GRAVITY,URINE MANUAL; Value: 1.020; Range: 1.002-1.035; Status: F Test: PROTEIN, URINE MANUAL; Value: 3+; Range: NEGATIVE; Abnormal: Above high normal; Units: mg/dL; Status: F Test: GLUCOSE, URINE (UA) MANUAL; Value: NEGATIVE; Range: NEGATIVE; Units: mg/dL; Status: F Test: KETONE, URINE MANUAL; Value: NEGATIVE; Range: NEGATIVE; Units: mg/dL; Status: F Test: UROBILINOGEN, URINE MANUAL; Value: NORMAL; Range: NORMAL; Units: mg/dl; Status: F Test: BILIRUBIN, URINE MANUAL; Value: NEGATIVE; Range: NEGATIVE; Status: F Test: NITRITE, URINE MANUAL; Value: NEGATIVE; Range: NEGATIVE; Status: F Test: LEUKOCYTE ESTERASE, URINE MAN; Value: POSITIVE; Range: NEGATIVE; Abnormal: Above high normal; Status: F Test: BLOOD URINE MANUAL; Value: POSITIVE; Range: NEGATIVE; Abnormal: Above high normal; Status: F Lab Order: MICROSCOPIC, URINE; SPEC'M 07/06/16 05:33 Test: WBC, URINE; Value: 1-3; Range: 0-3; Units: /hpf; Status: F Test: RBC, URINE; Value: TNTC; Range: 0-3; Abnormal: Above high normal; Units: /hpf; Status: F Test: SQUAMOUS EPITHELIAL CELL URINE; Value: NONE SEEN; Range: SMALL AMT; Units: /hpf; Status: F Test: BACTERIA, URINE; Value: NONE SEEN; Range: NONE; Status: F Test: HYALINE CAST, URINE; Value: NONE SEEN; Range: 0-1; Units: /lpf; Status: F Test: MICROSCOPIC EXAM; Value: UNSPUN; Status: F Radiology Order: CT ABD & PELVIS: No Contrast Test: CT ABD & PELVIS: No Contrast REASON FOR EXAMINATION: Renal colic; ; CLINICAL HISTORY: Abdominal pain.; TECHNIQUE: Multiple axial, sagittal and coronal CT images were obtained through the abdomen and pelvi; s without administration of oral or IV contrast material.; COMMENTS:; The liver is of uniform attenuation without mass or defect. There is no intra or extrahepatic biliary; ductal dilatation. The spleen is normal. The gallbladder is within normal limits. The pancreas is of; normal contour and attenuation characteristics. There is no evidence of adrenal mass.; The kidneys are normal in size, shape and configuration. No renal or ureteral calculi are identified.; There is no hydroureter or hydronephrosis.; There is no evidence for appendicitis. There is no bowel wall thickening. No evidence for small or la; rge bowel obstruction. There is no evidence of abdominal ascites or lymphadenopathy.; There is no evidence of intrinsic or extrinsic bladder mass. There is no pelvic ascites or lymphadeno; michael.; Moderate fecal stasis suggestive of constipation. Moderate fecal stasis in the distal small bowels.; Images of the lung bases show no evidence of pleural or parenchymal mass. There are no pleural effusi; ons. Mild diffuse thickening of the one of the small bowels.; The bony structures are free of lytic or blastic lesions.; IMPRESSION:; Constipation.; Thank you for your kind referral of this patient.; ; Outcome: 06:50 Discharge ordered by Provider. 11 07:08 Discharge Assessment: patient administered narcotics - yes. Pt provided with safe kr3 discharge. The following High Risk Discharge criteria are identified: None. Discharged to home ambulatory, with family. Condition: stable. Discharge instructions given to patient, Instructed on discharge instructions, follow up and referral plans. medication usage, Demonstrated understanding of instructions, medications, Pt was receptive of discharge instructions/ teaching. Prescriptions given X 2. CT Study completed. Property sent home with patient. 07:09 Patient left the ED. kr3 Signatures: Dispatcher [employer] EDMS Zunilda Billingsley, Reg Reg gb Christy RosenRN RN kr3 Fredo Lombardo, DO cs11 Cadence Garg RN RN [facility] Sue Rodriguez RN RN af2 Yuliana Cruz, Reg Reg hs2 Gume Murcia, Reg Reg pm4 Corrections: (The following items were deleted from the chart) 05:48 05:41 URINALYSIS+LAB sent. [facility] EDNV Chart Complete MTDD
== END 2016-07-06 07:09 | disposition home or self-care (01) ==
LOC: M ED 05:01
DX: R31.9 Hematuria, unspecified (principal); N30.90 Cystitis, unspecified without hematuria
CPT/HCPCS: 74176; 80048; 81000; 84703; 85025; 87086; 96361; 96374; 96375; 99284; J1170; J1885

== ENCOUNTER → 2016-09-18 | Outpatient (REF) | payer OTHER ==
[2016-09-18 13:55] LABS: BASO % 0.5 % (0.0-1.0); EOS # 0.1 K/mm3 (0.0-0.50); EOS % 1.5 % (0.0-3.0); LARGE UNSTAINED CELL # 0.1 K/mm3 (0.0-0.4); LARGE UNSTAINED CELL % 1.5 % (0.0-4.0); LYMPH # 2.2 K/mm3 (1.5-6.5); LYMPH % 31.3 % (24.0-44.0); MEAN CORPUSCULAR HEMOGLOBIN 29.5 pg (27.0-33.0); MEAN CORPUSCULAR HGB CONC 32.9 g/dl (32.0-36.5); MEAN CORPUSCULAR VOLUME 89.6 fl (80.0-96.0); MONO # 0.4 K/mm3 (0.0-0.8); MONO % 5.5 % (0.0-5.0); NEUTROPHILS # 4.1 K/mm3 (1.8-7.7); NEUTROPHILS % 59.8 % (36.0-66.0); PLATELET COUNT, AUTOMATED 292 k/mm3 (150-450); RED CELL DISTRIBUTION WIDTH 12.6 % (11.5-14.5); WHITE BLOOD COUNT 6.8 K/mm3 (4.0-10.0)
[2016-09-18 14:14] LABS: ANION GAP 6 MEQ/L (8-16); BLOOD UREA NITROGEN 11 MG/DL (7-18); CALCIUM LEVEL 8.9 MG/DL (8.5-10.1); CARBON DIOXIDE LEVEL 31 MEQ/L (21-32); CHLORIDE LEVEL 104 MEQ/L (98-107); GLOMERULAR FILTRATION RATE > 60.0 (>60); GLUCOSE, FASTING 89 MG/DL (70-105); POTASSIUM SERUM 4.2 MEQ/L (3.5-5.1); SODIUM LEVEL 141 MEQ/L (136-145)
[2016-09-18 14:15] LABS: ALBUMIN 3.7 GM/DL (3.2-5.2); ALBUMIN/GLOBULIN RATIO 1.19 (1.00-1.93); ALKALINE PHOSPHATASE 98 U/L (45-117); ALT/SGPT 17 U/L (12-78); AST/SGOT 15 U/L (15-37); BILIRUBIN,TOTAL 0.5 MG/DL (0.2-1.0); TOTAL PROTEIN 6.8 GM/DL (6.4-8.2)
[2016-09-18 14:31] LABS: ERYTHROCYTE SEDIMENTATION RATE 16 mm/hr (0-20)
== END ==
LOC: M LABDRAW1 13:32
PROVIDERS: ATTEND Psychiatry & Neurology Neurology
DX: R51 Headache (principal)

== ENCOUNTER → 2017-02-17 | Outpatient (REF) | payer OTHER | LOC: M SFHCLERA 15:32 | PROVIDERS: ATTEND Physician Assistant | DX: J02.9 Acute pharyngitis, unspecified (principal) ==

== ENCOUNTER → 2017-03-04 | Outpatient (REF) | payer OTHER | LOC: M SFHCLERA 10:03 | PROVIDERS: ATTEND Nurse Practitioner Family | DX: R10.30 Lower abdominal pain, unspecified (principal); N89.8 Other specified noninflammatory disorders of vagina ==

== ENCOUNTER → 2017-08-04 | Outpatient (REF) | payer OTHER | LOC: M SFHCLERA 18:45 | DX: R53.81 Other malaise (principal) ==

== ENCOUNTER 2018-01-18 20:57 | Emergency (ER) | payer OTHER ==
[2018-01-18] MEDS: NS 1,000 ML IV (23:23)
[2018-01-18] MEDS: METOCLOPRAMIDE INJ 10MG/2ML VIAL (J2765) IV (23:54)
[2018-01-18] MEDS: diphenhydrAMINE INJ 50MG/ML VIAL (J1200) IV (23:55)
[2018-01-18] MEDS: KETOROLAC 30 MG/ML VIAL (J1885) IV (23:55)
== END 2018-01-19 00:27 | disposition home or self-care (01) ==
LOC: M ED 01-19 00:27
DX: G43.909 Migraine, unspecified, not intractable, without status migrainosus (principal); F17.200 Nicotine dependence, unspecified, uncomplicated
CPT/HCPCS: J1200

== ENCOUNTER → 2018-04-09 | Outpatient (REF) | payer OTHER | LOC: M SFHCLERA 13:18 | DX: J02.9 Acute pharyngitis, unspecified (principal) ==

== ENCOUNTER 2018-04-22 16:31 | Emergency (ER) | payer OTHER ==
[2018-04-22 18:40] LABS: KETONE, URINE AUTO RFX NEGATIVE (NEGATIVE); MUCUS, URINE RFX SMALL (NEGATIVE); NITRITE, URINE AUTO RFX NEGATIVE (NEGATIVE); RBC, URINE AUTO RFX 51 /HPF (0-3); SPECIFIC GRAVITY UR AUTO RFX 1.019 (1.002-1.035); SQUAM EPITHELIAL CELL UR AURFX 1 /HPF (0-6)
[2018-04-22 18:48] LABS: LEUKOCYTE ESTERASE UR AUTO RFX 2+ (NEGATIVE); WBC, URINE AUTO RFX TNTC /HPF (0-3)
[2018-04-22] MEDS: NITROFURANTOIN (MACROBID) 100 MG CAP PO (19:10)
== END 2018-04-22 19:13 | disposition home or self-care (01) ==
LOC: M ED 16:31
DX: N39.0 Urinary tract infection, site not specified (principal)
CPT/HCPCS: 81001

== ENCOUNTER 2018-06-08 01:04 | Emergency (ER) | payer OTHER, SELFPAY ==
[~2018-06-08] VITALS: Ht 160 cm; Wt 81.8 kg
[~2018-06-08 01:04] MED LIST: ALIG4CAP PO; CIPR-249 PO; HYDR-3363 PO; HYDR50TA70 PO; MACR100C43 PO; PRENTAB55 PO; PYRI1TAB5 PO; VENL75CA47 PO
[2018-06-08] MEDS ORDERED: PERCOCET 5MG/325MG TAB PO ONE (01:30)
[2018-06-08 01:54] VITALS: BP 126/74
[2018-06-09] MEDS ORDERED: ACET1TAB55 PO (22:49)
[2018-06-09] MEDS ORDERED: VENTAER INH (23:56)
== END 2018-06-08 01:54 | disposition home or self-care (01) ==
LOC: M ED 01:04
DX: O99.89 Other specified diseases and conditions complicating pregnancy, childbirth and the puerperium (principal); M26.623 Arthralgia of bilateral temporomandibular joint; Z3A.12 12 weeks gestation of pregnancy

== ENCOUNTER 2018-06-27 14:18 | Emergency (ER) | payer MEDICAID, OTHER, SELFPAY ==
[~2018-06-27] VITALS: Ht 160 cm; Wt 86.4 kg
[~2018-06-27 14:18] MED LIST changes: +ACET1TAB55 PO; +VENTAER INH
[2018-06-27 15:20] LABS: BASO % 0.2 % (0.0-1.0); EOS # 0.1 10^3/uL (0.0-0.50); EOS % 0.8 % (0.0-3.0); HEMOGLOBIN 13.6 g/dl (12.0-15.5); LYMPH # 2.6 10^3/uL (1.5-6.5); LYMPH % 28.7 % (24.0-44.0); MEAN CORPUSCULAR HEMOGLOBIN 29.4 pg (27.0-33.0); MEAN CORPUSCULAR VOLUME 86.6 fl (80.0-96.0); MONO # 0.7 10^3/uL (0.0-0.8); MONO % 7.8 % (0.0-5.0); NEUTROPHILS # 5.6 10^3/uL (1.8-7.7); NEUTROPHILS % 61.9 % (36.0-66.0); PLATELET COUNT, AUTOMATED 290 10^3/uL (150-450); RED BLOOD COUNT 4.62 10^6/uL (4.00-5.40); WHITE BLOOD COUNT 9.1 10^3/uL (4.0-10.0)
[2018-06-27] MEDS ORDERED: NS 500 ML IV ONE (15:30)
--- NOTE | 2018-06-27 15:34 | REP ---
Urinary tract sonogram: History: Flank pain. During . Comparison: No comparisons. Findings: Scanning at the level of the urinary bladder shows no abnormality. Renal cortical echogenicity pattern is normal bilaterally and contours are smooth. There is no evidence of hydronephrosis, cyst, mass, or calculus in either kidney. The right kidney measures 10.1 x 5.8 x 5.2 cm. Left renal dimensions are 10.9 x 6.3 x 4.7 cm. Impression: Normal urinary tract sonography. Electronically Signed by North Robles MD 06/27/2018 03:25 P
[2018-06-27 16:04] LABS: BLOOD UREA NITROGEN 6 MG/DL (7-18); CALCIUM LEVEL 8.7 MG/DL (8.5-10.1); CARBON DIOXIDE LEVEL 26 MEQ/L (21-32); CHLORIDE LEVEL 107 MEQ/L (98-107); CREATININE FOR GFR 0.59 MG/DL (0.55-1.30); GLOMERULAR FILTRATION RATE > 60.0 (>60); GLUCOSE, FASTING 77 MG/DL (70-100); POTASSIUM SERUM 4.2 MEQ/L (3.5-5.1); SODIUM LEVEL 138 MEQ/L (136-145)
--- NOTE | 2018-06-27 16:11 | REP ---
Limited obstetric sonography: History: Pain. Findings: Scanning through the gravid uterus demonstrates a viable single intrauterine gestation in variable lie. motion is observed and heart rate is recorded at 150 beats per minute. A posterior placenta is seen. The placenta appears low-lying at this stage. Transvaginal imaging demonstrates the inferior edge of the placenta, 1.4 cm from the internal cervical os. Amniotic fluid is subjectively normal. No extrauterine abnormalities observed. It is too early for anatomic survey. Biometry chart: BPD 2.8 cm = 14-week 6 days HC 10.3 cm = 14 weeks 6 days AC 9.6 cm = 15 weeks 5 days FL 1.6 cm = 14 weeks 5 days HL 1.6 cm = 14-week 3 days HC/AC ratio 1.08 (1.11-1.29). Cephalic index normal 0.74. Estimated weight 117 grams, 0 pounds 4 ounces, 37th percentile for 15 weeks 2 days. Impression: Viable single intrauterine gestation at 14 weeks 6 days by today's sonographic criteria. PATRIC by today's sonography December 20, 2018. No complication is identified. Low-lying placenta at this stage posteriorly. Electronically Signed by North Robles MD 06/27/2018 08:01 P
[2018-06-27] MEDS ORDERED: MACR100C43 PO (16:18)
[2018-06-27 16:59] VITALS: BP 106/65
== END 2018-06-27 17:01 | disposition home or self-care (01) ==
LOC: M ED 14:18
DX: O23.42 Unspecified infection of urinary tract in pregnancy, second trimester (principal); O44.42 Low lying placenta NOS or without hemorrhage, second trimester; Z3A.14 14 weeks gestation of pregnancy; Z87.891 Personal history of nicotine dependence

== ENCOUNTER → 2018-07-01 | Outpatient (CLI) | payer MEDICAID ==
[2018-07-01 13:38] LABS: BASO % 0.2 % (0.0-1.0); EOS # 0.1 10^3/uL (0.0-0.50); EOS % 0.6 % (0.0-3.0); HEMATOCRIT 39.1 % (36.0-47.0); HEMOGLOBIN 13.4 g/dl (12.0-15.5); LYMPH # 2.6 10^3/uL (1.5-6.5); LYMPH % 25.7 % (24.0-44.0); MEAN CORPUSCULAR HEMOGLOBIN 29.5 pg (27.0-33.0); MEAN CORPUSCULAR HGB CONC 34.3 g/dl (32.0-36.5); MEAN CORPUSCULAR VOLUME 86.1 fl (80.0-96.0); MONO # 0.7 10^3/uL (0.0-0.8); MONO % 6.6 % (0.0-5.0); NEUTROPHILS # 6.8 10^3/uL (1.8-7.7); NEUTROPHILS % 66.4 % (36.0-66.0); PLATELET COUNT, AUTOMATED 279 10^3/uL (150-450); RED BLOOD COUNT 4.54 10^6/uL (4.00-5.40); WHITE BLOOD COUNT 10.3 10^3/uL (4.0-10.0)
[2018-07-04 11:04] LABS: HIV 1&2 SCREEN CENTAUR NEGATIVE (NEGATIVE); RUBELLA IgG QUALITATIVE IMMUNE (IMMUNE)
== END ==
LOC: M SMT 11:36
PROVIDERS: ATTEND Advanced Practice Midwife
DX: Z36.89 Encounter for other specified antenatal screening (principal)

== ENCOUNTER → 2018-07-23 | Outpatient (CLI) | payer MEDICAID ==
--- NOTE | 2018-07-23 16:26 | REP ---
OB ULTRASOUND: Real-time sonographic evaluation of the gravid uterus is performed utilizing transabdominal and endovaginal technique. There is a single living intrauterine gestation. The estimated gestational age is 19 weeks 0 days. EDC 12/17/2018. Today's measurements indicate appropriate growth. BPD 42 mm = 18 weeks 5 days, at the 43rd percentile. HC 160 mm = 18 weeks 6 days, at the 45th percentile. AC 131 mm = 18 weeks 4 day, at the 42nd percentile. Femur length 29 mm = 18 weeks 6 days, at the 48th percentile. HC/AC ratio 1.22 within normal range. Estimated weight 256 grams at the 39th percentile. Cervix is closed measures 3.5 cm in length. heart rate 141 beats per minute. SEEN/GROSSLY UNREMARKABLE Lateral ventricles Yes Posterior fossa Yes Upper lip Yes Four-chamber heart No LVOT Yes RVOT Yes Stomach Yes Cord insertion Yes Three vessel cord Yes Kidneys Yes Bladder Yes Spine Yes position: Vertex. Placenta: Posterior and grade 1 with no previa or abruption. Amniotic fluid: Within normal limits. Placenta is somewhat low lying. The inferior placenta tip is 2.4 cm from the internal cervical os. Electronically Signed by Bud Butler MD 07/23/2018 08:16 P
== END ==
LOC: M RAD 11:55
PROVIDERS: ATTEND Advanced Practice Midwife
DX: O44.42 Low lying placenta NOS or without hemorrhage, second trimester (principal); Z36.89 Encounter for other specified antenatal screening; Z3A.19 19 weeks gestation of pregnancy

== ENCOUNTER → 2018-07-29 | Outpatient (REF) | payer MEDICAID ==
[2018-07-29 15:51] LABS: CHLAMYDIA DNA AMPLIFICATION POSITIVE (NEGATIVE); GC DNA AMPLIFICATION NEGATIVE (NEGATIVE)
== END ==
LOC: M LAB REF 13:05
PROVIDERS: ATTEND Advanced Practice Midwife
DX: Z34.82 Encounter for supervision of other normal pregnancy, second trimester (principal); Z3A.00 Weeks of gestation of pregnancy not specified

== ENCOUNTER → 2018-07-30 | Outpatient (CLI) | payer MEDICAID ==
[2018-07-30 20:00] LABS: CHLAMYDIA DNA AMPLIFICATION POSITIVE (NEGATIVE); GC DNA AMPLIFICATION NEGATIVE (NEGATIVE)
== END ==
LOC: M SMT 13:58
PROVIDERS: ATTEND Advanced Practice Midwife
DX: Z36.89 Encounter for other specified antenatal screening (principal); Z11.3 Encounter for screening for infections with a predominantly sexual mode of transmission

== ENCOUNTER → 2018-07-31 | Outpatient (REF) | payer MEDICAID ==
[2018-07-31 17:24] LABS: CHLAMYDIA DNA AMPLIFICATION POSITIVE (NEGATIVE); GC DNA AMPLIFICATION NEGATIVE (NEGATIVE)
== END ==
LOC: M LAB REF 13:32
PROVIDERS: ATTEND Physician Assistant
DX: Z11.3 Encounter for screening for infections with a predominantly sexual mode of transmission (principal)

== ENCOUNTER → 2018-08-26 | Outpatient (CLI) | payer MEDICAID, OTHER, SELFPAY ==
--- NOTE | 2018-08-27 04:35 | REP ---
Clinical: Anatomical evaluation. Comparison: 07/23/2018 . Findings: Examination demonstrates a single live intrauterine in transverse (head to maternal right) presentation. motion is identified by technologist. Placenta is noted posterior and grade grade zero without evidence for placenta previa or abruption. Amniotic fluid volume is normal. Cervix measures 4.6 cm in length and appears closed. No evidence for nuchal cord. Gestational age by LMP 23 weeks 6 days with PATRIC 12/17/2018 . Gestational age by current measurements 22 weeks 5 days with PATRIC 12/25/2018 . FHR equals 136 beats per minute. Estimated weight 542 grams (16th percentile). Anatomical assessment demonstrates normal structures including cranium, choroid plexus, cavum, cerebellum/posterior fossa, facial features, lungs, four-chamber heart/ventricular outflow tracts, diaphragm, stomach, cord insertion/three-vessel cord, kidneys/bladder, spine, and extremities. Impression: Single live intrauterine in transverse lie. Estimated weight at 16th percentile. Anatomical assessment is complete and normal. Electronically Signed by Gil Mcnair MD 08/27/2018 04:26 A
== END ==
LOC: M RAD 12:42
PROVIDERS: ATTEND Advanced Practice Midwife
DX: Z34.82 Encounter for supervision of other normal pregnancy, second trimester (principal); Z3A.23 23 weeks gestation of pregnancy

== ENCOUNTER → 2018-08-27 | Outpatient (REF) | payer MEDICAID, OTHER ==
[2018-08-27 15:18] LABS: CHLAMYDIA DNA AMPLIFICATION POSITIVE (NEGATIVE); GC DNA AMPLIFICATION NEGATIVE (NEGATIVE)
== END ==
LOC: M LAB REF 13:37
PROVIDERS: ATTEND Advanced Practice Midwife
DX: Z34.82 Encounter for supervision of other normal pregnancy, second trimester (principal); Z3A.00 Weeks of gestation of pregnancy not specified

== ENCOUNTER → 2018-10-01 | Outpatient (REF) | payer MEDICAID ==
[2018-10-01 15:13] LABS: CHLAMYDIA DNA AMPLIFICATION NEGATIVE (NEGATIVE); GC DNA AMPLIFICATION NEGATIVE (NEGATIVE)
== END ==
LOC: M LAB REF 13:09
PROVIDERS: ATTEND Advanced Practice Midwife
DX: Z34.02 Encounter for supervision of normal first pregnancy, second trimester (principal)

== ENCOUNTER → 2018-10-08 | Outpatient (CLI) | payer MEDICAID, OTHER ==
[2018-10-08 09:35] LABS: HEMATOCRIT 34.6 % (36.0-47.0); HEMOGLOBIN 11.5 g/dl (12.0-15.5); MEAN CORPUSCULAR HEMOGLOBIN 29.3 pg (27.0-33.0); MEAN CORPUSCULAR HGB CONC 33.2 g/dl (32.0-36.5); PLATELET COUNT, AUTOMATED 255 10^3/uL (150-450); RED BLOOD COUNT 3.93 10^6/uL (4.00-5.40); WHITE BLOOD COUNT 12.5 10^3/uL (4.0-10.0)
== END ==
LOC: M LAB 07:53
PROVIDERS: ATTEND Advanced Practice Midwife
DX: Z34.82 Encounter for supervision of other normal pregnancy, second trimester (principal); Z3A.00 Weeks of gestation of pregnancy not specified

== ENCOUNTER → 2018-10-17 | Outpatient (CLI) | payer MEDICAID, OTHER | LOC: M LAB 07:28 | PROVIDERS: ATTEND Advanced Practice Midwife | DX: Z34.82 Encounter for supervision of other normal pregnancy, second trimester (principal) ==

== ENCOUNTER → 2018-10-21 | Outpatient (CLI) | payer MEDICAID, OTHER ==
--- NOTE | 2018-10-22 06:37 | REP ---
Clinical: Growth evaluation. Comparison: 08/26/2018 . Findings: Examination demonstrates a single live intrauterine in cephalic presentation. motion is identified by technologist. Placenta is noted posterior and grade grade 1 without evidence for placenta previa or abruption. Amniotic fluid volume is normal. Cervix measures 3.0 cm in length and appears closed. No evidence for nuchal cord. Gestational age by LMP 31 weeks 6 days with PATRIC 12/17/2018 . Gestational age by current measurements 31 weeks 6 days with PATRIC 12/17/2018 . FHR equals 134 beats per minute. BPD 7.7 cm 30 weeks 6 days HC 29.1 cm 32 weeks 0 days AC 28.8 cm 32 weeks 6 days FL 6.1 cm 31 weeks 6 days HL 5.4 cm 31 weeks 3 days HC/AC ratio 1.01 Estimated weight 1937 grams ( 50th percentile). Amniotic fluid index: 15.6 cm Umbilical cord SD ratio: 2.45 Impression: Single live advanced gestation in cephalic presentation demonstrating appropriate interval growth. No gross abnormalities are identified. Electronically Signed by Gil Mcnair MD 10/22/2018 06:28 A
== END ==
LOC: M RAD 17:13
PROVIDERS: ATTEND Advanced Practice Midwife
DX: Z36.4 Encounter for antenatal screening for fetal growth retardation (principal); Z3A.31 31 weeks gestation of pregnancy

== ENCOUNTER 2018-11-19 20:50 | Outpatient (CLI) | payer OTHER ==
[~2018-11-19] VITALS: Ht 160 cm; Wt 97.7 kg
[2018-11-19 21:11] VITALS: BP 135/80
--- NOTE | 2018-11-19 22:32 | IPN ---
DATE: 11/19/2018 Andreina is a 23-year-old 1, para 0 at 36 weeks gestation, EDC of 12/17/2018 based on last menstrual period and confirmed by first trimester ultrasound presents to labor and delivery today with report of a headache, edema, seeing spots, cramping. Denies vaginal bleeding, leakage of fluid and regular painful contractions. Fetus has been active. care was initiated at [facility] in the second trimester. course complicated by low lying placenta that has resolved, history of depression, anxiety. Stopped taking her medications during . Reports a history of frequent UTIs and kidney infections and a positive chlamydia during her with a test of cure on 09/2018 negative. PAST MEDICAL HISTORY Kidney infection, depression. SURGERIES Tonsillectomy, wisdom tooth extraction, knee surgery. FAMILY HISTORY Diabetes, hypertension, asthma. SOCIAL HISTORY The patient is . She was a smoker prior to . Denies smoking during . History of chlamydia during this . Denies history of abuse physical, sexual and emotional. ALLERGIES: ZYRTEC, PINEAPPLE. CURRENT MEDICATIONS vitamin. OBJECTIVE Temperature 98.6, pulse 107, respirations 16, BP is 135/80. She is alert and oriented times three. She is in no apparent distress. She is smiling and talkative. heart rate is 140 with moderate variability, positive accelerations, negative decelerations. No pattern of any regular contractions. Sterile vaginal examination: fingertip, 50% effaced, -2 posterior. Soft. No show with the exam. Urine dip specific gravity 1.025, negative proteinuria, negative nitrites, negative blood, negative leukocytes. ASSESSMENT Intrauterine at 36 weeks. heart rate category one, not in active labor. PLAN The patient was offered Tylenol for her headache. She declines decided and decided just to consume increased fluids. I did review signs or symptoms of labor, kick counts and access to care. The patient is to keep her scheduled appointment on Saturday as planned. The patient had all her questions answered and agrees to discharge home.
== END 2018-11-19 21:41 | disposition home or self-care (01) ==
LOC: M LDO 20:50
PROVIDERS: ATTEND Advanced Practice Midwife
DX: O26.893 Other specified pregnancy related conditions, third trimester (principal); R51 Headache; R60.9 Edema, unspecified; R10.84 Generalized abdominal pain; O99.89 Other specified diseases and conditions complicating pregnancy, childbirth and the puerperium; H53.10 Unspecified subjective visual disturbances; O47.03 False labor before 37 completed weeks of gestation, third trimester; Z3A.36 36 weeks gestation of pregnancy
CPT/HCPCS: 59025; G0378; G0463

== ENCOUNTER → 2018-11-21 | Outpatient (CLI) | payer OTHER ==
[2018-11-21 15:35] LABS: CHLAMYDIA DNA AMPLIFICATION NEGATIVE (NEGATIVE); GC DNA AMPLIFICATION NEGATIVE (NEGATIVE)
== END ==
LOC: M SMT 09:54
PROVIDERS: ATTEND Specialist
DX: Z34.83 Encounter for supervision of other normal pregnancy, third trimester (principal); Z3A.36 36 weeks gestation of pregnancy

== ENCOUNTER → 2018-11-21 | Outpatient (REF) | payer OTHER | LOC: M LAB REF 17:09 | PROVIDERS: ATTEND Specialist | DX: Z36.85 Encounter for antenatal screening for Streptococcus B (principal); Z3A.36 36 weeks gestation of pregnancy ==

== ENCOUNTER 2018-12-07 09:57 | Outpatient (CLI) | payer OTHER ==
[~2018-12-07] VITALS: Ht 160 cm; Wt 100.0 kg
[2018-12-07 10:25] VITALS: BP 112/61
--- NOTE | 2018-12-07 10:28 | NUR ---
L&D Triage Note Reason for visit: labor check Subjective 23 year old at 38+4 weeks gestation. EDC: 12/17/2018. Complains of low back pain and thinks that she might be in labor. Denies vaginal bleeding or loss of fluid. She cannot determine if she is having uterine contractions. Reports regular, frequent movement. course completed by chlamydial infection that was eventually successfully treated. Medical history: Depression and anxiety, frequent UTIs and kidney infections Surgical history: Knee surgery, wisdom teeth, tonsillectomy Medications: vitamins Allergies:. 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 History of chlamydial infection that was treated, test of cure was negative in September 2018 Social history: No tobacco, alcohol or drug use Objective Vitals: Normotensive normal heart rate, afebrile Heart: Regular rate and rhythm. No murmurs, gallops, rubs Lungs: Clear to auscultation bilaterally. No wheezes, crackles, rales or rhonchi Abdomen: Uterine fundus , nontender and fundal height consistent with gestational age. No guarding or rebound tenderness. Pelvic:, 3 cm, 50% effacement, -3. Cephalic, no bloody show. Intact membranes Extremities: nonedematous, nontender. External monitoring/NST:Reactive, normal baseline, moderate variability, no decelerations. Tocodynamometer: contractions are occurring, rarely Assessment/Plan 23 year old at 38+4 weeks gestation. No evidence of active labor or ruptured membranes. Reassuring maternal and status. -Routine labor, movement/kick count, and obstetric emergency precautions reviewed. -Follow-up with appointment as currently scheduled. Randall Foster.O., F.A.C.O.G.
[2018-12-07] MEDS ORDERED: MAPA500T2 PO (10:30)
== END 2018-12-07 10:43 | disposition home or self-care (01) ==
LOC: M LDO 09:57
PROVIDERS: ATTEND Obstetrics & Gynecology
DX: O26.893 Other specified pregnancy related conditions, third trimester (principal); M54.9 Dorsalgia, unspecified; O47.1 False labor at or after 37 completed weeks of gestation; Z3A.38 38 weeks gestation of pregnancy
CPT/HCPCS: 59025; G0378; G0463

== ENCOUNTER → 2018-12-16 | Outpatient (CLI) | payer OTHER ==
[~2018-12-16] MED LIST changes: +IBUP80TA PO; +MAPA500T2 PO
--- NOTE | 2018-12-16 22:25 | REP ---
Clinical: Growth evaluation. Comparison: 10/21/2018 . Findings: Examination demonstrates a single live intrauterine in cephalic presentation. motion is identified by technologist. Placenta is noted posterior and grade zero without evidence for placenta previa or abruption. Amniotic fluid volume is normal. Cervix appears closed. No evidence for nuchal cord. Gestational age by LMP 39 weeks 6 days with PATRIC 12/17/2018 . Gestational age by current measurements 39 weeks 1 day with PATRIC 12/22/2018 . FHR equals 133 beats per minute. BPD 9.4 cm 38 weeks 3 days HC 33.3 cm 38 weeks 0-day AC 35.9 cm 39 weeks 5 days FL 7.9 cm 40 weeks 1 day HL 6.7 cm 39 weeks 1 day HC/AC ratio 0.93 Estimated weight 3789 grams ( 60th percentile). Amniotic fluid index: 13.6 cm Umbilical cord SD ratio: 2.76 Impression: single live advanced gestation in cephalic presentation demonstrating appropriate interval growth. Umbilical cord SD ratio minimally elevated. Electronically Signed by Gil Mcnair MD 12/16/2018 10:17 P
== END ==
LOC: M RAD 13:29
PROVIDERS: ATTEND Advanced Practice Midwife
DX: O26.843 Uterine size-date discrepancy, third trimester (principal); Z3A.39 39 weeks gestation of pregnancy

== ENCOUNTER 2018-12-19 07:56 | Inpatient (IN) | payer OTHER ==
[2018-12-19] VITALS (15 sets, daily range): BP systolic 88–135; BP diastolic 49–70
[~2018-12-19] VITALS: Ht 160 cm; Wt 101.9 kg
[~2018-12-19 07:56] MED LIST changes: -IBUP80TA PO
[2018-12-19] MEDS ORDERED: LACTATED RINGER'S 1000 ML IV STA (08:24)
[2018-12-19] MEDS ORDERED: miSOPROStol 50 MCG 1/2 TAB (S0191) PO ONE (08:30)
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
[2018-12-19 09:10] LABS: HEMATOCRIT 36.1 % (36.0-47.0); HEMOGLOBIN 11.3 g/dl (12.0-15.5); MEAN CORPUSCULAR HEMOGLOBIN 26.3 pg (27.0-33.0); MEAN CORPUSCULAR HGB CONC 31.3 g/dl (32.0-36.5); MEAN CORPUSCULAR VOLUME 84.1 fl (80.0-96.0); PLATELET COUNT, AUTOMATED 239 10^3/uL (150-450); RED BLOOD COUNT 4.29 10^6/uL (4.00-5.40); WHITE BLOOD COUNT 10.1 10^3/uL (4.0-10.0)
[2018-12-19] MEDS ORDERED: OXYTOCIN DRIP 30 UNITS in APPROPRIATE DILUENT 1 EA IV SCH (13:00)
[2018-12-19] MEDS: LR 1,000 ML IV SCH ×2 (13:09→16:46)
--- NOTE | 2018-12-19 17:52 | IPNPDOC ---
Text Note Date of Service The patient was seen on 12/19/18. NOTE Remains comfortable Pitocin @ 8mu UC Q 3-4 minutes x 60 seconds FH 140, Cat I SVE unchanged, AROM moderate amount clear fluid VS,Fishbone, I+O VS, Fishbone, I+O Laboratory Tests 12/19/18 08:58 Red Blood Count 4.29, Mean Corpuscular Volume 84.1, Mean Corpuscular Hemoglobin 26.3 L, Mean Corpuscular Hemoglobin Concent 31.3 L, Red Cell Distribution Width 14.8 H Vital Signs Date Time Temp Pulse Resp B/P (MAP) Pulse Ox O2 Delivery O2 Flow Rate FiO2 12/19/18 16:37 98.1 74 16 111/59 (76) Lyndsey Oliver CNM Dec 19, 2018 17:52
[2018-12-19] MEDS ORDERED: PROMETHAZINE INJ 25 MG/ML VIAL (J2550) IV ONE (18:30)
[2018-12-19] MEDS ORDERED: BUTORPHANOL 2 MG/ML INJ (J0595) IV ONE (18:30)
[2018-12-19] MEDS ORDERED: FENTANYL 2MCG/ML ROPIVACAINE 0.2% IN 0.9% NACL 100ML IVBAG As Ordered ONE (19:44)
[2018-12-19] MEDS ORDERED: NALOXONE INJ 0.4 MG/1 ML VIAL (J2310) IV PRN (20:25)
[2018-12-19] MEDS ORDERED: EPIDURAL COMMENT XX SCH (20:25)
[2018-12-19] MEDS ORDERED: ONDANSETRON 4MG/2ML VIAL (J2405) IV PRN (20:25)
[2018-12-19] MEDS ORDERED: EPIDURAL/PCA KEYS XX PRN (20:25)
[2018-12-19] MEDS ORDERED: REFRIGERATOR IV KEYS XX PRN (20:25)
[2018-12-19] MEDS ORDERED: LACTATED RINGER'S 1000 ML IV PRN (20:25)
[2018-12-19] MEDS ORDERED: FENTANYL/ROPIVACAINE/NACL BAG 100 ML EPIDURAL SCH (20:25)
[2018-12-19] MEDS ORDERED: ePHEDrine SULFATE 25 MG/5 ML(5MG/ML) SYRINGE IV PRN (20:25)
[2018-12-19] MEDS ORDERED: diphenhydrAMINE INJ 50MG/ML VIAL (J1200) IV PRN (20:25)
[2018-12-20] MEDS ORDERED: ACETAMINOPHEN 500 MG TAB As Ordered ONE (02:55)
--- NOTE | 2018-12-20 03:03 | IPNPDOC ---
Text Note Date of Service The patient was seen on 12/20/18. NOTE Comfortable following epidural placement FD per nursing. Labor down Cat I tracing Anticipate NSVB VS,Fishbone, I+O VS, Fishbone, I+O Laboratory Tests 12/19/18 08:58 Red Blood Count 4.29, Mean Corpuscular Volume 84.1, Mean Corpuscular Hemoglobin 26.3 L, Mean Corpuscular Hemoglobin Concent 31.3 L, Red Cell Distribution Width 14.8 H Vital Signs Date Time Temp Pulse Resp B/P (MAP) Pulse Ox O2 Delivery O2 Flow Rate FiO2 12/19/18 18:29 16 100 12/19/18 16:37 98.1 74 111/59 (76) I&O- Last 24 Hours up to 6 AM 12/20/18 06:00 Intake Total 1954 ml Output Total 950 ml Balance 1004 ml Lyndsey Oliver CNM Dec 20, 2018 03:03
[2018-12-20 07:18] LABS: CORD GAS ABE A -4.2; CORD GAS HCO3 A 21.3 MEQ/L; CORD GAS O2 SAT A 76.4 %; CORD GAS PCO2 A 40.9 mmHg; CORD GAS PH A 7.335 UNITS; CORD GAS PO2 A 34.9 mmHg; CORD GAS SBC A 20.5 MEQ/L; CORD GAS TCO2 A 22.6 MEQ/L
[2018-12-20 07:19] LABS: CORD GAS ABE V -3.7; CORD GAS HCO3 V 21.9 MEQ/L; CORD GAS O2 SAT V 74.2 %; CORD GAS PCO2 V 41.6 mmHg; CORD GAS PH V 7.339 UNITS; CORD GAS PO2 V 34.5 mmHg; CORD GAS SBC V 20.8 MEQ/L; CORD GAS TCO2 V 23.2 MEQ/L
[2018-12-20] MEDS ORDERED: RHOGAM 300 MCG (1500 IU) INJ (J2790) IM SCH (07:30)
[2018-12-20] MEDS ORDERED: ANUSOL HC CREAM 30GM TOP PRN (07:30)
[2018-12-20] MEDS ORDERED: LIDOCAINE 1% MDV 20ML VIAL INFIL ONE (07:30)
[2018-12-20] MEDS ORDERED: ACETAMINOPHEN TAB 650MG DOSE (2X325MG) PO PRN (07:30)
[2018-12-20] MEDS ORDERED: DOCUSATE SODIUM 100 MG CAP PO PRN (07:30)
[2018-12-20] MEDS ORDERED: DIBUCAINE 1% OINTMENT 30GM TOP PRN (07:30)
[2018-12-20] MEDS ORDERED: MEASLES,MUMPS,RUBELLA VACCINE INJ (MMR-II) (90707) SC SCH (07:30)
[2018-12-20] MEDS ORDERED: MOM 30ML SUSPENSION UDC PO PRN (07:30)
[2018-12-20] MEDS ORDERED: IBUPROFEN 600 MG TAB PO PRN (07:30)
--- NOTE | 2018-12-20 07:40 | DNPDOC ---
[facility] Delivery Note Delivery Note DATE OF DELIVERY: 12/20/18 PREDELIVERY DIAGNOSIS: 40+3/7 weeks' gestation and labor. POST DELIVERY DIAGNOSIS: Delivered. PROCEDURE: Spontaneous vaginal delivery. PROVIDER: Lyndsey Oliver CNM ANESTHESIA: Epidural. ESTIMATED BLOOD LOSS: 300 mL. FINDINGS: 8 pound 6 ounce, 3810gm female , Score 4/8/9, occult cord @ chest level, 105 second shoulder dystocia. DELIVERY SUMMARY: Patient is a 23-year-old 1 now para 1-0-0-1 who was admitted to labor and delivery for elective induction of labor at term. She received one dose of misoprostol PO followed by IV pitocin. AROM clear fluid 1747. She utilized an epidural for labor coping. Viable female child delivered BRENNAN after a 105 second shoulder dystocia, relieved by [place] and suprapubic pressure. Occult loop of cord @ chest level. Time of delivery 0656. Cord doubly clamped and cut. directly to warmer for stimulation and resuscitation where she was suctioned and received PPV x 2 minutes. Apgars 4/8/9. Cord gases obtained, arterial 7.335 with BE -4.0 and venous 7.339 with BE -3.7. Terminal meconium noted. [place] Placenta rocha, intact with 3 v cord @ 0703. Fundus firmed with massage and IV pitocin bolus. EBL 300ml. Perineum, cervix and vagina inspected, bilateral labial abrasions noted, L reapproximated with one stitch of 3-0 vicryl rapide after infiltration with lidocaine. Sponge, sharp and instrument count correct at close of procedure. wt 8#6, 3810gm. Lyndsey Oliver CNM Dec 20, 2018 07:40
[2018-12-20] MEDS: METHYLERGONOVINE MALEATE 0.2 MG TAB PO SCH ×3 (07:54→20:54)
[2018-12-20] MEDS ORDERED: METHYLERGONOVINE MALEATE 0.2 MG TAB PO PRN (08:00)
[2018-12-20 08:22] VITALS: BP 136/63
[2018-12-20] MEDS: PRENATAL VITAMINS CHEWABLE TABLET PO SCH (09:00)
[2018-12-20] MEDS: IBUPROFEN 800 MG TAB PO PRN ×2 (09:31→20:54)
[2018-12-20 09:55] VITALS: BP 125/65
[2018-12-20] MEDS: ACETAMINOPHEN 500 MG TAB PO PRN (13:35)
[2018-12-20 18:00] VITALS: BP 121/67
[2018-12-21] MEDS: METHYLERGONOVINE MALEATE 0.2 MG TAB PO SCH (03:20)
[2018-12-21] MEDS: ACETAMINOPHEN 500 MG TAB PO PRN (03:25)
[2018-12-21 05:56] VITALS: BP 130/59
[2018-12-21] MEDS: PRENATAL VITAMINS CHEWABLE TABLET PO SCH (15:00)
[2018-12-21] MEDS: IBUPROFEN 800 MG TAB PO PRN (16:08)
--- NOTE | 2018-12-21 16:59 | NUR ---
PPD#1 S: Doing well w/o complaints. O: vss AF Gen: well appearing abd: soft, nttp, ff@u-2 ext: neg calf tenderness A/P: PPD#1 s/p - recovering in stable condition -cont routine care -d/c plans for tomorrow Sadia Falk MD
[2018-12-21 18:00] VITALS: BP 122/60
[2018-12-22] MEDS: ACETAMINOPHEN 500 MG TAB PO PRN (04:54)
[2018-12-22 06:13] VITALS: BP 100/50
[2018-12-22] MEDS ORDERED: IBUP80TA PO (07:26)
[2018-12-22] MEDS: PRENATAL VITAMINS CHEWABLE TABLET PO SCH (08:28)
== END 2018-12-22 14:36 | disposition home or self-care (01) | DRG 807 ==
LOC: M LDI 07:56 → M OBS 12-20 09:45
PROVIDERS: ADMIT Advanced Practice Midwife; ATTEND Advanced Practice Midwife
PROC: 10E0XZZ Delivery of Products of Conception, External Approach (ICD-10-PCS; principal; 2018-12-20)
PROC: 3E033VJ Introduction of Other Hormone into Peripheral Vein, Percutaneous Approach (ICD-10-PCS; 2018-12-20)
PROC: 10907ZC Drainage of Amniotic Fluid, Therapeutic from Products of Conception, Via Natural or Artificial Opening (ICD-10-PCS; 2018-12-20)
PROC: 3E0DXGC Introduction of Other Therapeutic Substance into Mouth and Pharynx, External Approach (ICD-10-PCS; 2018-12-20)
DX: O48.0 Post-term pregnancy (principal); Z37.0 Single live birth; Z3A.40 40 weeks gestation of pregnancy; O66.0 Obstructed labor due to shoulder dystocia; O77.0 Labor and delivery complicated by meconium in amniotic fluid; O43.893 Other placental disorders, third trimester

== ENCOUNTER → 2019-04-17 | Outpatient (REF) | payer OTHER ==
[~2019-04-17] MED LIST changes: +IBUP80TA PO
[2019-04-17 15:37] LABS: CHLAMYDIA DNA AMPLIFICATION NEGATIVE (NEGATIVE); GC DNA AMPLIFICATION NEGATIVE (NEGATIVE)
[2019-04-24 14:27] LABS: HPV LOW VOL RFLX Positive (Negative)
== END ==
LOC: M LAB REF 13:06
PROVIDERS: ATTEND Advanced Practice Midwife
DX: Z12.4 Encounter for screening for malignant neoplasm of cervix (principal); R87.610 Atypical squamous cells of undetermined significance on cytologic smear of cervix (ASC-US)

== ENCOUNTER → 2019-04-17 | Outpatient (CLI) | payer OTHER, SELFPAY ==
[2019-04-17 13:58] LABS: HIV 1&2 SCREEN CENTAUR NEGATIVE (NEGATIVE)
== END ==
LOC: M SMT 11:17
PROVIDERS: ATTEND Advanced Practice Midwife
DX: Z12.4 Encounter for screening for malignant neoplasm of cervix (principal); R87.610 Atypical squamous cells of undetermined significance on cytologic smear of cervix (ASC-US); Z11.3 Encounter for screening for infections with a predominantly sexual mode of transmission
CPT/HCPCS: 36415; 86780; 86803; 87389; 87624; 87661; G0123

== ENCOUNTER 2019-05-31 21:12 | Emergency (ER) | payer MEDICAID, OTHER ==
[~2019-05-31] VITALS: Ht 160 cm; Wt 90.9 kg
[2019-05-31 21:46] LABS: AMORPHOUS SEDIMENT SMALL (NEGATIVE); APPEARANCE, URINE TURBID (CLEAR); BACTERIA, URINE AUTO NEGATIVE (NEGATIVE); BILIRUBIN, URINE AUTO NEGATIVE (NEGATIVE); BLOOD, URINE BLOOD 3+ (NEGATIVE); COLOR, URINE YELLOW (YELLOW); GLUCOSE, URINE (UA) AUTO NEGATIVE (NEGATIVE); KETONE, URINE AUTO NEGATIVE (NEGATIVE); LEUKOCYTE ESTERASE, URINE AUTO 3+ (NEGATIVE); MUCUS, URINE SMALL (NEGATIVE); NITRITE, URINE AUTO NEGATIVE (NEGATIVE); PROTEIN, URINE AUTO 3+ mg/dL (NEGATIVE); RBC, URINE AUTO TNTC /HPF (0-3); SPECIFIC GRAVITY URINE AUTO 1.025 (1.002-1.035); SQUAMOUS EPITHELIAL CELL UR AU 2 /HPF (0-6); TRANSITIONAL EPITHELIAL AUTO 3 /HPF; WBC, URINE AUTO TNTC /HPF (0-3)
[2019-05-31] MEDS ORDERED: AMOXICILLIN 500 MG CAP PO ONE (23:00)
[2019-05-31] MEDS ORDERED: AMOX500C PO (23:00)
[2019-05-31 23:05] VITALS: BP 119/76
== END 2019-05-31 23:15 | disposition home or self-care (01) ==
LOC: M ED 21:12
DX: O23.40 Unspecified infection of urinary tract in pregnancy, unspecified trimester (principal); Z3A.00 Weeks of gestation of pregnancy not specified; Z88.1 Allergy status to other antibiotic agents; Z91.018 Allergy to other foods